=== PATIENT | female | born 1960 | race Two or more races ===

== ENCOUNTER 2016-11-02 17:00 | Emergency (ER) | payer OTHER ==
--- NOTE | 2016-11-02 18:08 | RAD ---
HISTORY: Erythema and pain along left fifth MTP. No injury. COMPARISON: None TECHNIQUE:Three views Foot Laterality:Left FINDINGS: Bones: Amorphous calcification is identified at the level of the fifth MTP joint laterally. There is some amount of edema and thickening to the soft tissues in this region. Findings of unknown clinical significance and could relate to secondary ossification center, old fracture fragment or soft tissue calcification. No fracture or dislocation. Small enthesophytes are noted at the plantar fascial origin and insertion of the Achilles on the calcaneus. Joints: Mild degenerative joint space loss is seen at the first MTP joint. Soft tissue: Faint vascular calcifications are present. IMPRESSION: Amorphous calcification is noted just lateral to the fifth MTP joint of unknown clinical significance. No fracture or dislocation.
[2016-11-02] MEDS ORDERED: CLINDAMYCIN HCL 150 MG CAPSULE ONE (18:16)
[2016-11-02] MEDS ORDERED: IBUPROFEN 600 MG TABLET ONE (18:16)
== END 2016-11-02 18:45 | disposition home or self-care (01) ==
LOC: ED 17:00
DX: M79.675 Pain in left toe(s) (principal); M25.572 Pain in left ankle and joints of left foot; E11.9 Type 2 diabetes mellitus without complications; Z79.84 Long term (current) use of oral hypoglycemic drugs
CPT/HCPCS: 73630; 99283 ×2; A9270 ×2